=== PATIENT | female | born 1980 | race Caucasian/White ===

== ENCOUNTER 2020-03-24 14:46 | Emergency (ER) | payer SELFPAY ==
[~2020-03-24] VITALS: Ht 157.5 cm; Wt 72.6 kg
[2020-03-24 15:25] VITALS: Ht 157.5 cm; Wt 72.6 kg
[2020-03-24 15:30] LABS: BASOPHIL % 1.1 % (0.2-1.3); PLATELET COUNT 271 x10^3mcL (179-408)
[2020-03-24 15:36] LABS: microscopic required? NO
[2020-03-24 15:55] LABS: UA SPECIFIC GRAVITY <=1.005 (1.005-1.035); urine erythrocyte NEGATIVE (NEGATIVE)
[2020-03-24 15:58] LABS: CALCIUM 8.7 mg/dL (8.5-10.1); CARBON DIOXIDE 32.6 mmol/L (21-32); CHLORIDE SERUM 109 mmol/L (98-107); CREATININE SERUM 0.7 mg/dL (0.6-1.0); GFR1 > 60 mL/min; GLUCOSE SERUM 75 mg/dL (74-106); POTASSIUM SERUM 3.3 mmol/L (3.5-5.1); SODIUM SERUM 146 mmol/L (136-145)
[2020-03-24 16:02] LABS: ALBUMIN 4.1 g/dL (3.4-5.0); ALKALINE PHOSPHATASE 49 U/L (46-116); ALT/SGPT 30 U/L (14-59); AST/SGOT 24 U/L (15-37); BILIRUBIN TOTAL 0.1 mg/dL (0.20-1.00); LIPASE 71 IU/L (73-393); TOTAL PROTEIN, SERUM 7.5 g/dL (6.4-8.2); TRIGLYCERIDES 66 mg/dL (<150)
[2020-03-24 16:06] LABS: CHOLESTEROL 205 mg/dL (<200); CHOLESTEROL/HDL RATIO 2.5; HDL CHOLESTEROL 81 mg/dL (40-60)
[2020-03-24 16:18] LABS: AMPHETAMINE QUAL UR NONE DETECTED (See below)
[2020-03-24 17:03] LABS: T3 TOTAL 0.93 ng/mL
[2020-03-24 17:45] LABS: FREE T4 0.95 ng/dL (0.76-1.46); T4(THYROXINE) 5.8 ug/dL (4.7-13.3)
[2020-03-24 17:52] VITALS: BP 103/65
== END 2020-03-24 17:52 | disposition home or self-care (01) ==
LOC: ED 14:46
PROVIDERS: Specialist
DX: R06.02 Shortness of breath (principal)
CPT/HCPCS: 83880; 84439; G0480

== ENCOUNTER 2020-04-22 00:50 | Emergency (ER) | payer OTHER ==
[~2020-04-22] VITALS: Ht 157.5 cm; Wt 72.6 kg
[2020-04-22 00:54] VITALS: BP 116/73; Ht 157.5 cm; Wt 72.6 kg
== END 2020-04-22 01:12 ==
LOC: ED 00:50
DX: Z02.89 Encounter for other administrative examinations (principal)